=== PATIENT | male | born 1995 | race Caucasian/White ===

== ENCOUNTER 2020-09-16 11:57 | Emergency (ER) | payer OTHER ==
[2020-09-16 12:30] VITALS: BMI 36.8
[2020-09-16 13:09] LABS: PH,URINE 5.5 (5.0-8.0); URINE APPEARANCE CLEAR; URINE BILIRUBIN NEGATIVE (NEGATIVE); URINE COLOR YELLOW; URINE GLUCOSE (UA) NEGATIVE (NEGATIVE); URINE KETONE NEGATIVE (NEGATIVE); URINE LEUK ESTERASE NEGATIVE (NEGATIVE); URINE NITRITE NEGATIVE (NEGATIVE); URINE PROTEIN NEGATIVE (NEGATIVE); URINE UROBILINOGEN 0.2 mg/dL (0.2-1.0)
[2020-09-16] MEDS ORDERED: IBUPROFEN 600 MG TABLET (FP) PO ONE ×2 (13:13→13:15)
[2020-09-16 18:31] VITALS: BP 138/79; PULSE 86; TEMP 98.9
== END 2020-09-16 18:31 | disposition home or self-care (01) ==
LOC: JER 11:57
DX: N50.812 Left testicular pain (principal)
CPT/HCPCS: 36415; 74176-TC; 76870-TC; 81003; 87086; 87491; 87591; 99285-25

== ENCOUNTER 2024-03-27 00:51 | Emergency (ER) | payer OTHER ==
[2024-03-27 01:07] VITALS: RESP 18; TEMP 98.8; BMI 34.3
[2024-03-27] MEDS ORDERED: ACETAMINOPHEN 325 MG TABLET (FP) ONE ×2 (02:02→02:04)
[2024-03-27] MEDS: ACETAMINOPHEN 500 MG TABLET (FP) PO ONE (02:07)
[2024-03-27] MEDS ORDERED: KETOROLAC TROMETHAMINE 30 MG/1 ML VIAL ONE (04:22)
[2024-03-27] MEDS: KETOROLAC TROMETHAMINE 30 MG/1 ML VIAL IM ONE (04:29)
[2024-03-27 04:35] VITALS: BP 137/90; PULSE 85
[2024-03-27] MEDS: DIPHTH,PERTUSS(ACELL),TET VAC 0.5 ML VIAL IM ONE (05:15)
== END 2024-03-27 05:17 | disposition home or self-care (01) ==
LOC: JER 00:51
PROC: 3E0233Z Introduction of Anti-inflammatory into Muscle, Percutaneous Approach (ICD-10-PCS; principal; 2024-03-27)
DX: R51.9 Headache, unspecified (principal); R68.84 Jaw pain; W01.198A Fall on same level from slipping, tripping and stumbling with subsequent striking against other object, initial encounter
CPT/HCPCS: 70450-TC; 70486-TC; 99284-25

== ENCOUNTER 2024-09-11 14:34 | Emergency (ER) | payer OTHER ==
[2024-09-11 15:19] VITALS: RESP 17; BMI 34.3
[2024-09-11] MEDS ORDERED: KETOROLAC TROMETHAMINE 15 MG/ML VIAL ONE (16:04)
[2024-09-11] MEDS: SODIUM CHLORIDE 0.9% 500 ML INFUS.BAG IV ONE (16:16)
[2024-09-11] MEDS: KETOROLAC TROMETHAMINE 15 MG/ML VIAL IVPUSH ONE (16:16)
[2024-09-11 16:30] LABS: BASO % 0.5 % (0-2.0); EOS % 3.3 % (0-4.5); HEMATOCRIT 44.2 % (35.4-49); HEMOGLOBIN 14.6 GM/dL (11.7-16.9); LYMPH % 38.5 % (8-40); MCH 31.2 pg (25.7-33.7); MCHC 33.1 g/dl (32.0-35.9); MEAN PLT VOLUME 8.5 fl (7.5-11.1); MONO % 6.8 % (3.8-10.2); NEUT % 50.9 % (42.8-82.8); PLATELET COUNT 259 10^3/uL (134-434); RDW 12.9 % (11.9-15.9); WHITE BLOOD COUNT 8.2 K/mm3 (4.0-10.0)
[2024-09-11] MEDS ORDERED: DIPHTH,PERTUSS(ACELL),TET 0.5 ML DISP.SYRIN IM ONE (17:01)
[2024-09-11 17:04] LABS: POTASSIUM 4.2 mmol/L (3.5-5.1)
[2024-09-11 17:06] LABS: ALBUMIN 4.1 g/dl (3.4-5.0); BLOOD UREA NITROGEN 11.8 mg/dL (7-18); CALCIUM 9.4 mg/dL (8.5-10.1)
[2024-09-11] MEDS: DIPHTH,PERTUSS(ACELL),TET 0.5 ML DISP.SYRIN IM ONE (17:06)
[2024-09-11 17:11] LABS: BILIRUBIN,TOTAL 0.4 mg/dL (0.2-1); TOT PROT 7.6 g/dl (6.4-8.2)
[2024-09-11 17:41] VITALS: BP 126/81; PULSE 83; TEMP 98.2
[2024-09-11 17:43] LABS: HCV DIAGNOSTIC IN-HOUSE W/RFLX NON-REACTIVE (NONREACTIVE)
[2024-09-11 17:44] LABS: HIV INTERPRETATION NEGATIVE (NEGATIVE)
== END 2024-09-11 17:51 | disposition home or self-care (01) ==
LOC: JER 14:34
PROC: 3E0333Z Introduction of Anti-inflammatory into Peripheral Vein, Percutaneous Approach (ICD-10-PCS; principal; 2024-09-11)
PROC: 3E0234Z Introduction of Serum, Toxoid and Vaccine into Muscle, Percutaneous Approach (ICD-10-PCS; 2024-09-11)
DX: S61.432A Puncture wound without foreign body of left hand, initial encounter (principal); R51.9 Headache, unspecified; Z23 Encounter for immunization; W57.XXXA Bitten or stung by nonvenomous insect and other nonvenomous arthropods, initial encounter
CPT/HCPCS: 36415; 80053; 82550; 82553; 83605; 85025; 86803; 87389; 90471; 90715; 96374; 99284-25